=== PATIENT | male | born 1950 | race Two or more races ===

== ENCOUNTER 2017-11-21 08:59 | Emergency (ER) | payer OTHER ==
[~2017-11-21] VITALS: Ht 182.9 cm; Wt 120.2 kg
[~2017-11-21 08:59] MED LIST: ASA325 M1 PO; CATAPRES0.3 MG PO; FOLBIC TABLET1 TAB PO; GLIMEPIRIDE2 MG PO; LIPITOR40 MG PO; PROTONIX40 MG PO; TOPROL XL50 MG PO; TRANXENE T-TAB7.5 MG PO; TRICOR145 MG PO; ZOCOR20 MG
== END 2017-11-21 12:57 | disposition home or self-care (01) ==
LOC: ER 08:59
DX: I10 Essential (primary) hypertension (principal)

== ENCOUNTER 2018-04-06 13:09 | Inpatient (IN) | payer OTHER ==
[~2018-04-06] VITALS: Ht 182.9 cm; Wt 127.9 kg
[2018-04-06] MEDS ORDERED: UROXATRAL10 MG (13:48)
[2018-04-06] MEDS ORDERED: PANTOPRAZOLE SO40 MG (13:48)
[2018-04-06] MEDS ORDERED: HYDRALAZINE HC100 MG (13:48)
[2018-04-06] MEDS ORDERED: FENOFIBRATE134 MG (13:48)
[2018-04-06] MEDS ORDERED: CATAPRES0.3 M1 (13:48)
[2018-04-06] MEDS ORDERED: ZYLOPRIM100 MG (13:49)
[2018-04-06] MEDS ORDERED: AFEDITAB CR60 MG (13:49)
[2018-04-06] MEDS ORDERED: ASPIR 8181 MG (13:49)
[2018-04-06] MEDS ORDERED: CARDURA8 MG (13:49)
[2018-04-06] MEDS ORDERED: METOPROLOL SUC200 MG (13:50)
[2018-04-06] MEDS ORDERED: LANTUS SOL100 UNIT/1 (13:50)
[2018-04-06] MEDS ORDERED: LEVOTHYROXINE50 MCG (13:50)
[2018-04-06] MEDS ORDERED: HUMALOG MI100 UNIT/2 (13:50)
[2018-04-06] MEDS ORDERED: IRBESARTAN300 MG (13:50)
[2018-04-11] MEDS ORDERED: HYDRALAZINE HCL50 MG PO (16:07)
[2018-04-11] MEDS ORDERED: DOXAZOSIN MESYLA8 MG PO (16:07)
[2018-04-11] MEDS ORDERED: TOPROL XL100 M1 PO (16:07)
[2018-04-11] MEDS ORDERED: PROCARDIA XL90 MG PO (16:07)
[2018-04-11] MEDS ORDERED: FUROSEMIDE10 MG/1 M1 PO (16:07)
[2018-04-11] MEDS ORDERED: ASA325 M1 PO (16:07)
[2018-04-11] MEDS ORDERED: CATAPRES0.3 M1 PO (16:07)
[2018-04-11] MEDS ORDERED: AVAPRO300 MG PO (16:07)
== END 2018-04-11 18:14 | disposition home or self-care (01) | DRG 304 ==
LOC: ER 13:09 → MEDI 23:08
PROC: B345ZZZ Ultrasonography of Bilateral Common Carotid Arteries (ICD-10-PCS; 2018-04-06)
PROC: B348ZZZ Ultrasonography of Bilateral Internal Carotid Arteries (ICD-10-PCS; 2018-04-06)
PROC: B020ZZZ Computerized Tomography (CT Scan) of Brain (ICD-10-PCS; 2018-04-06)
PROC: B246ZZZ Ultrasonography of Right and Left Heart (ICD-10-PCS; 2018-04-06)
PROC: 3E0F7GC Introduction of Other Therapeutic Substance into Respiratory Tract, Via Natural or Artificial Opening (ICD-10-PCS; principal; 2018-04-07)
PROC: 4A12X4Z Monitoring of Cardiac Electrical Activity, External Approach (ICD-10-PCS; 2018-04-07)
PROC: B030ZZZ Magnetic Resonance Imaging (MRI) of Brain (ICD-10-PCS; 2018-04-08)
DX: I16.0 Hypertensive urgency (principal); I63.511 Cerebral infarction due to unspecified occlusion or stenosis of right middle cerebral artery; I67.4 Hypertensive encephalopathy; N17.8 Other acute kidney failure; E86.0 Dehydration; E11.42 Type 2 diabetes mellitus with diabetic polyneuropathy; E11.649 Type 2 diabetes mellitus with hypoglycemia without coma; E11.22 Type 2 diabetes mellitus with diabetic chronic kidney disease; I12.9 Hypertensive chronic kidney disease with stage 1 through stage 4 chronic kidney disease, or unspecified chronic kidney disease; N18.1 Chronic kidney disease, stage 1; E03.8 Other specified hypothyroidism; R47.81 Slurred speech; I67.2 Cerebral atherosclerosis; I35.1 Nonrheumatic aortic (valve) insufficiency
CPT/HCPCS: 70553

== ENCOUNTER 2018-07-08 07:10 | Outpatient (CLI) | payer OTHER ==
[~2018-07-08 07:10] MED LIST changes: +AFEDITAB CR60 MG; +ASPIR 8181 MG; +AVAPRO300 MG PO; +CARDURA8 MG; +CATAPRES0.3 M1; +CATAPRES0.3 M1 PO; +DOXAZOSIN MESYLA8 MG PO; +FENOFIBRATE134 MG; +FUROSEMIDE10 MG/1 M1 PO; +HUMALOG MI100 UNIT/2; +HYDRALAZINE HC100 MG; +HYDRALAZINE HCL50 MG PO; +IRBESARTAN300 MG; +LANTUS SOL100 UNIT/1; +LEVOTHYROXINE50 MCG; +METOPROLOL SUC200 MG; +PANTOPRAZOLE SO40 MG; +PROCARDIA XL90 MG PO; +TOPROL XL100 M1 PO; +UROXATRAL10 MG; +ZYLOPRIM100 MG
== END 2018-07-08 07:18 | disposition home or self-care (01) ==
LOC: MRI 07:10
DX: I72.8 Aneurysm of other specified arteries (principal); I65.1 Occlusion and stenosis of basilar artery; I65.09 Occlusion and stenosis of unspecified vertebral artery; I65.29 Occlusion and stenosis of unspecified carotid artery; Q28.2 Arteriovenous malformation of cerebral vessels
CPT/HCPCS: 70544; 70551

== ENCOUNTER 2019-08-02 19:02 | Inpatient (IN) | payer OTHER ==
[~2019-08-02] VITALS: Ht 182.9 cm; Wt 122.5 kg
[2019-08-20] MEDS ORDERED: NIFEDIPINE ER60 MG PO (09:22)
[2019-08-20] MEDS ORDERED: TOPROL XL100 M1 PO (09:22)
[2019-08-20] MEDS ORDERED: Lopid PO (09:22)
[2019-08-20] MEDS ORDERED: DOXAZOSIN MESYLA8 MG PO (09:22)
[2019-08-20] MEDS ORDERED: HUMALOG100 UNIT/1 SUBCUTANEO (09:22)
[2019-08-20] MEDS ORDERED: CATAPRES0.3 M1 PO (09:22)
[2019-08-20] MEDS ORDERED: AVAPRO300 MG PO (09:22)
[2019-08-20] MEDS ORDERED: INTEGRA F CAPS1 EACH PO (09:22)
[2019-08-20] MEDS ORDERED: LEVOTHYROXINE25 MCG PO (09:22)
[2019-08-20] MEDS ORDERED: ZYLOPRIM100 M1 PO (09:22)
[2019-08-20] MEDS ORDERED: LIPITOR20 MG PO (09:22)
[2019-08-20] MEDS ORDERED: MONTELUKAST SOD10 MG PO (09:22)
[2019-08-20] MEDS ORDERED: Lantus 1000 UNITS/10 SUBCUTANEO (09:22)
== END 2019-08-20 11:11 | disposition home health service (06) | DRG 292 ==
LOC: ER 19:02 → ICU-2 08-03 11:26 → MEDI 08-14 11:45
PROVIDERS: ADMIT Internal Medicine
PROC: B245ZZZ Ultrasonography of Left Heart (ICD-10-PCS; principal; 2019-08-03)
PROC: 06HM33Z Insertion of Infusion Device into Right Femoral Vein, Percutaneous Approach (ICD-10-PCS; 2019-08-06)
PROC: 5A1D70Z Performance of Urinary Filtration, Intermittent, Less than 6 Hours Per Day (ICD-10-PCS; 2019-08-06)
PROC: 4A12X4Z Monitoring of Cardiac Electrical Activity, External Approach (ICD-10-PCS; 2019-08-14)
PROC: 0JH63XZ Insertion of Tunneled Vascular Access Device into Chest Subcutaneous Tissue and Fascia, Percutaneous Approach (ICD-10-PCS; 2019-08-16)
PROC: 02H633Z Insertion of Infusion Device into Right Atrium, Percutaneous Approach (ICD-10-PCS; 2019-08-16)
PROC: B548ZZA Ultrasonography of Superior Vena Cava, Guidance (ICD-10-PCS; 2019-08-16)
DX: I13.2 Hypertensive heart and chronic kidney disease with heart failure and with stage 5 chronic kidney disease, or end stage renal disease (principal); N17.9 Acute kidney failure, unspecified; I16.9 Hypertensive crisis, unspecified; N18.5 Chronic kidney disease, stage 5; I67.4 Hypertensive encephalopathy; I43 Cardiomyopathy in diseases classified elsewhere; I50.9 Heart failure, unspecified; E03.9 Hypothyroidism, unspecified; E66.01 Morbid (severe) obesity due to excess calories; E11.65 Type 2 diabetes mellitus with hyperglycemia; E86.0 Dehydration; E11.40 Type 2 diabetes mellitus with diabetic neuropathy, unspecified; Z79.4 Long term (current) use of insulin; E11.22 Type 2 diabetes mellitus with diabetic chronic kidney disease

== ENCOUNTER 2020-09-11 09:49 | Outpatient (CLI) | payer OTHER ==
[~2020-09-11 09:49] MED LIST changes: +HUMALOG100 UNIT/1 SUBCUTANEO; +INTEGRA F CAPS1 EACH PO; +LEVOTHYROXINE25 MCG PO; +LIPITOR20 MG PO; +Lantus 1000 UNITS/10 SUBCUTANEO; +Lopid PO; +MONTELUKAST SOD10 MG PO; +NIFEDIPINE ER60 MG PO; +ZYLOPRIM100 M1 PO
== END 2020-09-11 09:54 | disposition home or self-care (01) ==
LOC: RAD 09:49
PROVIDERS: ATTEND Internal Medicine Nephrology
DX: I50.22 Chronic systolic (congestive) heart failure (principal); R07.89 Other chest pain